=== PATIENT | female | born 1955 | race Caucasian/White ===

== ENCOUNTER → 2016-08-15 | Day surgery (SDC) | payer BC ==
[~2016-08-15] MED LIST: ESTRADIOL1 EAC2 TD; SYNTHROID125 PO
--- NOTE | ~2016-08-15 | OR ---
Unit #: [id number] #: [id number] Patient: TERESA TARIQ [id number] [address] [place], [place] [address] [id number] MR#: [id number] NAME: TERESA TARIQ ROOM: Date of Procedure: 08/15/2016 Admission Date: 08/15/2016 Surgeon: Sukhdeep Rashid M.D. : 1955 Attending Physician: Sukhdeep Rashid M.D. Primary Care Physician: Errol Monsalve M.D. OPERATIVE REPORT PREOPERATIVE DIAGNOSIS Screening colonoscopy. POSTOPERATIVE DIAGNOSIS Screening colonoscopy. PROCEDURES PERFORMED 1. Colonoscopy to cecum. 2. Polypectomy of cecum with biopsy forceps. 3. Hemoclip placement at polypectomy site. ANESTHESIA Monitored anesthesia care. FINDINGS The patient was found to have mild internal hemorrhoids and a small 3 to 4 mm polyp that was completely excised with good hemostasis from the apex to the cecum. A hemoclip was placed to ensure good hemostasis. SPECIMENS Sent to pathology. COMPLICATIONS None apparent. CONDITION The patient tolerated the procedure well. INDICATIONS FOR PROCEDURE The patient is a 60-year-old white female, who presents at this time for screening colonoscopy. DESCRIPTION OF PROCEDURE After obtaining informed consent, the patient was brought to the endoscopy suite and after adequate monitored anesthesia care, had the colonoscope placed through the anus and slowly advanced to the level of cecum without difficulty with the lumen always in view. The ileocecal valve was normal. The majority of the cecum was normal. There was a small 3 to 4 mm polyp present in the apex of the cecum. It was completely removed with the cold biopsy forceps. There was good hemostasis, but to ensure good hemostasis a hemoclip was placed as well. It was in good position. On pulling back above this area, the cecum was normal as was the ascending colon, hepatic Unit #: [id number] #: [id number] Patient: TERESA TARIQ flexure, transverse colon, splenic flexure, descending colon, sigmoid colon, and rectum. On retroflexing in the rectum to the anorectal junction, the patient was found to have some mild internal hemorrhoids. The scope was removed without difficulty. The patient tolerated the procedure well and went from the endoscopy suite to the recovery area in stable condition. RECOMMENDATIONS Call Monday for pathology. High-fiber diet, lots of liquids, tucks or wipes p.r.n. Dictated by... Pepe Aldana/marcellus TD: 08/16/2016 06:48 JOB #: [id number] Magali Johnson A.P.R.N. [facility] OPERATIVE REPORT Page 1 of 1 X Sukhdeep Rashid MD X PROCEDURE OPERATIVE NOTE
== END | disposition home or self-care (01) ==
LOC: COPS 08:49
DX: Z12.11 Encounter for screening for malignant neoplasm of colon (principal); D12.0 Benign neoplasm of cecum; K64.8 Other hemorrhoids; E03.9 Hypothyroidism, unspecified; Z79.899 Other long term (current) drug therapy; Z90.710 Acquired absence of both cervix and uterus
CPT/HCPCS: 88305